=== PATIENT | male | born 1965 | race Caucasian/White ===

== ENCOUNTER 2017-06-27 09:06 | Day surgery (SDC) | payer BC ==
[2017-06-27] MEDS ORDERED: diphenhydrAMINE 25 MG CAP PO ONE ×2 (09:25→09:52)
[2017-06-27] MEDS ORDERED: FAMOTIDINE 20 MG TAB PO ONE (09:25)
[2017-06-27] MEDS ORDERED: ASPIRIN EC 325 MG TAB PO ONE ×2 (09:25→09:52)
[2017-06-27] MEDS ORDERED: NS 1,000 ML IV ONE (09:25)
[2017-06-27] MEDS ORDERED: DIAZEPAM 5 MG TAB PO ONE (09:25)
--- NOTE | 2017-06-27 09:48 | CPEKG ---
Heart Rate: 78 RR Interval: 769 P-R Interval: 144 QRSD Interval: 90 QT Interval: 412 QTC Interval: 470 P [place]: 48 QRS [place]: -6 T Wave [place]: 71 EKG Severity - NORMAL ECG - EKG Impression: SINUS RHYTHM Electronically Signed By: Saurav Londono 27-Jun-2017 12:05:03
[2017-06-27] MEDS ORDERED: FAMOTIDINE 20 MG TAB ONE (09:52)
[2017-06-27] MEDS ORDERED: DIAZEPAM 5 MG TAB ONE (09:52)
[2017-06-27 09:56] LABS: PLATELET COUNT 151 10^3/uL (150-400)
[2017-06-27] MEDS ORDERED: ASPIRIN EC 81 MG TAB PO ONE (09:59)
[2017-06-27 10:10] LABS: INR 0.98 (0.83-1.16); PROTIME(PATIENT) 13.2 SEC (12.0-15.0)
[2017-06-27] MEDS ORDERED: fentaNYL 100 MCG/2 ML INJ ONE (10:56)
[2017-06-27] MEDS ORDERED: MIDAZOLAM 2 MG/2 ML VIAL ONE ×2 (10:56→12:00)
[2017-06-27] MEDS ORDERED: LIDOCAINE 1% 300 MG/30 ML SDV ONE (10:56)
[2017-06-27] MEDS ORDERED: IOPAMIDOL (ISOVUE-370) 150 ML BTL IV ONE (10:57)
--- NOTE | 2017-06-27 11:38 | PDGENHP ---
History & Physical Chief Complaint: CAD History of Present Illness: Pt with multiple risk factors and CAD presents with a high risk abnormal nuclear stress test. Pertinent Past, Social, Family History: HTN, tobacco use, Hyperlipidemia Relevant Physical Exam: CTA. RRR Cardiorespiratory Assessment: Known CAD with high risk stress test. Plan for angiogram for risk stratification.
--- NOTE | 2017-06-27 11:38 | PDPROPOC ---
Sedation Plan of Care Sedation Plan of Care: vital signs stable, mental status noted, patient educated of risks, benefits, alternatives, patient can tolerate sedation ASA Classification: ASA 2 Planned drugs: fentanyl, midazolam Mallampati Score: Class 2 Mallampati Reference Image: Patient passed 3-3-2 rule?: Yes
--- NOTE | 2017-06-27 13:02 | CPIP ---
[f rep st] INVASIVE CARDIAC PROCEDURE DATE OF PROCEDURE: 06/27/2017 PROCEDURE: 1. Coronary angiography. 2. Left ventriculography. INDICATION: Abnormal nuclear stress test with 2 zones of ischemia placing the patient at high risk. ACCESS: The patient was prepped and draped in sterile fashion. 1% lidocaine was used to anesthetize the right inguinal region. A 6-[place] introducer sheath was placed selectively into the right commo n femoral artery via modified Seldinger technique. CORONARY ANGIOGRAPHY: A 6-[place] JL4 was advanced to the left main coronary artery and images obtain ed. The left main coronary artery trifurcated into LAD, ramus, and circumflex coronary arteries. Th e left main coronary artery appeared normal. The left anterior descending coronary artery gave rise to 2 prominent diagonal branches. The left anterior descending coronary artery had mild diffuse dise ase in the proximal and mid segments. There was no stenosis greater than 20%. The ramus coronary ar raya was a moderate-sized vessel. The ramus coronary artery appeared normal. The circumflex coronar y artery was a large vessel but was nondominant. Circumflex coronary artery had sequential 20% steno sis in the mid vessel. A 6-[place] JR4 was advanced to the right coronary artery and images obtained. The right coronary artery is diffusely diseased. In the proximal segment, there is a discrete 20% stenosis present. In the mid segment, there is a discrete 20% stenosis present. In the mid to dista l PDA there was a single discrete 40% to 50% stenosis present. LEFT VENTRICULOGRAPHY: A 6-[place] pigtail catheter was advanced in the left ventricle and images obt ained. The left ventricle is normal in size and normal systolic function. Estimated ejection fracti on is 55%. COMPLICATIONS: None. CONCLUSIONS: 1. [id number] coronary artery disease without flow limitation. 2. Normal left ventricular systolic function. 3. Plan is for medical management. /[id number]/MODL
[2017-06-27] MEDS ORDERED: NITROGLYCERIN 0.4 MG BTL SL PRN (15:59)
[2017-06-27] MEDS ORDERED: ATROPINE SULFATE 1 MG/10 ML SYR IVP PRN (15:59)
[2017-06-27] MEDS ORDERED: HYDROCODONE/APAP 5/325 TAB PO PRN (15:59)
[2017-06-27] MEDS ORDERED: OXYCODONE/APAP 5/325 TAB PO PRN (15:59)
[2017-06-27] MEDS ORDERED: ONDANSETRON 4 MG/2 ML VIAL IVP PRN (15:59)
[2017-06-27] MEDS ORDERED: ALBUTEROL 60 PUFFS/8 GM MDI IH PRN (16:00)
[2017-06-27] MEDS ORDERED: FLUTICASONE/SALMETER 250/50MCG DISKUS IH SCH (21:00)
[2017-06-28] MEDS ORDERED: COLCHICINE 0.6 MG CAP/TAB PO SCH (09:00)
[2017-06-28] MEDS ORDERED: NON-FORMULARY NEW DRUG (Esomeprazole Mag Trihydrate [Nexium] 40 MG) PO SCH (09:00)
[2017-06-28] MEDS ORDERED: CETIRIZINE 10 MG TAB PO SCH (09:00)
[2017-06-28] MEDS ORDERED: ALLOPURINOL 300 MG TAB PO SCH (09:00)
[2017-06-28] MEDS ORDERED: ASPIRIN 81 MG CHEWABLE TAB PO SCH (09:00)
== END 2017-06-27 17:30 | disposition home or self-care (01) ==
LOC: FLAB 09:06 → FCATH 17:30
PROVIDERS: ATTEND Internal Medicine Cardiovascular Disease
PROC: 4A023N7 Measurement of Cardiac Sampling and Pressure, Left Heart, Percutaneous Approach (ICD-10-PCS; principal; 2017-06-27)
PROC: B2111ZZ Fluoroscopy of Multiple Coronary Arteries using Low Osmolar Contrast (ICD-10-PCS; principal; 2017-06-27)
PROC: B2151ZZ Fluoroscopy of Left Heart using Low Osmolar Contrast (ICD-10-PCS; principal; 2017-06-27)
DX: I25.10 Atherosclerotic heart disease of native coronary artery without angina pectoris (principal); R94.39 Abnormal result of other cardiovascular function study; I10 Essential (primary) hypertension; E78.5 Hyperlipidemia, unspecified; F17.200 Nicotine dependence, unspecified, uncomplicated
CPT/HCPCS: J1644; J2250; J3010; Q9967